=== PATIENT | male | born 1965 | race Caucasian/White ===

== ENCOUNTER → 2019-12-19 07:54 | Outpatient (CLI) | payer BC, SELFPAY ==
--- NOTE | ~2019-12-19 | MR_ITS ---
EXAMINATION: MR knee RT wo con DATE: 12/19/2019 08:38 INDICATION: Right knee pain TECHNIQUE: Magnetic resonance imaging (MRI) of the right knee was performed without intravenous contr ast. Sequences included coronal PD-weighted FSE, coronal PD-weighted FS FSE, sagittal T2-weighted FS E, sagittal PD-weighted FS FSE and axial PD weighted fat saturated FSE. COMPARISON: None. FINDINGS: Medial compartment: Complex tear at the body and posterior horn of the medial meniscus includes both longitudinal and rad ial components. Deep chondral fissuring at the anterior weightbearing medial femoral condyle and at t he anterior aspect of the medial tibial plateau, the latter with tiny focus of subarticular edema. Lateral compartment: Lateral meniscus is normal. Partial-thickness chondral ulceration in place involving greater than 50% the cartilage thickness extending anteroposteriorly along the mid portion of the anterior to central weightbearing medial femoral condyle. Patellofemoral compartment: Chondral fissuring involving less than 50% the cartilage thickness at the central aspect of the later al patellar facet. Shallow fissuring at the apical ridge. Deep fissuring without degenerative subchon dral changes at the medial patellar facet. Trochlear cartilage is normal. Ligaments and tendons: The posterior cruciate ligament is normal. The anterior cruciate ligament demonstrates a normal angle relative to Blumenstaat's line. It appears thickened with increased intrasubstance signal surroundin g intact appearing linear fibers with a celery stalk appearance consistent with mucoid degeneration . The medial collateral ligament and fibular collateral ligament complex are normal. Mild distal quad riceps and proximal patellar tendinopathy without discrete tear. The visualized medial and lateral chino mstring tendons as well as the iliotibial band are normal. Fluid: Small right knee joint effusion with minimally increased fluid at the suprapatellar pouch.. No loose osteochondral bodies identified. Small Betts's cyst. Osseous/other: Normal marrow signal. No fracture or pathologic marrow replacing process. IMPRESSION: 1. Complex medial meniscal tear. 2. 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 3. 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 4. Small right knee joint effusion with small Betts's cyst. Reviewed, dictated and finalized at location A. IMPRESSION: 1. Complex medial meniscal tear. 2. 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 3. 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 4. Small right knee joint effusion with small Betts's cyst.
== END ==
PROVIDERS: PCP Family Medicine
DX: M25.561 Pain in right knee (principal); S83.231A Complex tear of medial meniscus, current injury, right knee, initial encounter; M17.11 Unilateral primary osteoarthritis, right knee; M94.261 Chondromalacia, right knee; M25.461 Effusion, right knee; M71.21 Synovial cyst of popliteal space [Baker], right knee
CPT/HCPCS: 73721

== ENCOUNTER 2024-01-20 15:25 | Outpatient (CLI) | payer BC, SELFPAY ==
--- NOTE | ~2024-01-20 | XR_ITS ---
CHEST RADIOGRAPH, PA AND LATERAL CLINICAL HISTORY: R06.00 - Dyspnea, unspecified . COMPARISON: 07/07/2016 TECHNIQUE: PA and lateral views of the chest. FINDINGS The cardiomediastinal silhouette is unremarkable. The lungs are clear. Visualized osseous structures and soft tissues are unremarkable. IMPRESSION: No focal infiltrate or effusion. Reviewed, dictated and finalized at location A. US MANAGER
== END 2024-01-20 15:26 | disposition home or self-care (01) ==
LOC: MICIMG 15:26
PROVIDERS: PCP Family Medicine; Visit Provider Family Medicine
DX: R06.00 Dyspnea, unspecified (principal)
CPT/HCPCS: 71046